=== PATIENT | female | born 1980 | race Caucasian/White ===

== ENCOUNTER → 2021-06-14 09:42 | Outpatient (CLI) | payer OTHER, SELFPAY ==
[2021-06-14 10:39] LABS: COVID19 -Nasal RAPID Negative (Negative)
== END ==
PROVIDERS: Visit Provider Nurse Practitioner
DX: Z20.822 Contact with and (suspected) exposure to COVID-19 (principal); R52 Pain, unspecified; R53.83 Other fatigue
CPT/HCPCS: 87635

== ENCOUNTER → 2021-07-11 09:17 | Outpatient (CLI) | payer OTHER, SELFPAY ==
[2021-07-11 11:30] LABS: COVID19 -Nasal RAPID Negative (Negative)
== END ==
PROVIDERS: Visit Provider Nurse Practitioner Family
DX: Z20.822 Contact with and (suspected) exposure to COVID-19 (principal)
CPT/HCPCS: 87635

== ENCOUNTER 2021-07-25 09:20 | Emergency (ER) | payer SELFPAY ==
[2021-07-25] VITALS (7 sets, daily range): BP systolic 123–142; BP diastolic 57–83; PULSE 73–92; RESP 14–23; TEMP 36.8; O2SAT 94–100; BMI 36.5
[2021-07-25 10:12] LABS: Add Manual Diff / Slide Review NO; Basophils Absolute Auto 100 /uL (0-100); Basophils Percent Auto 1.1 % (0-2); Eosinophils Absolute Auto 200 /uL (0-450); Eosinophils Percent Auto 2.2 % (2-4); Hematocrit 40.5 % (36-46); Hemoglobin 13.2 g/dL (12.0-16.0); Lymphocytes Absolute Auto 2800 /uL (1100-4500); Lymphocytes Percent Auto 34.7 % (25-40); Mean Corpuscular HGB Conc 32.7 % (30-36); Mean Corpuscular Volume 85.5 fL (80-100); Monocytes Absolute Auto 500 /uL (0-900); Monocytes Percent Auto 6.1 % (3-14); Neutrophils Absolute Auto 4600 /uL (1500-7000); Neutrophils Percent Auto 55.9 % (50-75); Platelet Count 281 X10^3/uL (150-400); Red Blood Cell Count 4.73 X10^6/uL (4.0-5.2); Red Cell Distribution Width 12.3 % (11.6-14.8); White Blood Cell Count 8.2 X10^3/uL (4.5-11.0)
--- NOTE | 2021-07-25 10:29 | ED_ITS ---
HPI - General Adult General Chief complaint: Abdominal Pain Stated complaint: Extreme pain in right side under rib cage Time Seen by Provider: 07/25/21 10:28 Source: patient Mode of arrival: Ambulatory Limitations: no limitations History of Present Illness HPI narrative: 41-year-old woman who presents with right upper quadrant pain. She notes that she has had intermittent problems with pain over the last number of years however over the last few weeks gotten significantly worse. In the last 48 hours she has had difficulty sleeping comes in today because the pain is not relenting at all. She notes that she has quite a few increased stressors for a bit of time was working 2 jobs, little time to focus on any type of healthy diet and has been eating quite a bit of ?vending machine lunches? and fast food. She does note that poor diet has made pain worse. She describes fatigue and chills some mild nausea but no specific emesis or diarrhea. No headaches, chest pain, dyspnea or palpitations. Related Data Home Medications Medication Instructions Recorded Confirmed multivitamin-ferrous 1 tab PO DAILY 06/14/21 07/11/21 fumarate-folic acid 18 mg-400 mcg tablet (Centrum) Allergies Allergy/AdvReac Type Severity Reaction Status Date / Time amoxicillin [From Augmentin] Allergy Unknown Verified 07/25/21 09:32 clavulanic acid Allergy Unknown Verified 07/25/21 09:32 [From Augmentin] sumatriptan [From Imitrex] Allergy Unknown Verified 07/25/21 09:32 eucalyptus Allergy Unknown Uncoded 07/11/21 09:30 Review of Systems Review of Systems Narrative: Remainder of complete review of systems is otherwise unremarkable except for that included in the HPI. Patient History Surgical History (Updated 07/25/21 @ 10:40 by Chey Simmons MD) H/O: hysterectomy Status post appendectomy Social History Smoking Status: Current every day smoker Smoking Status: Current every day smoker tobacco type: vaping alcohol intake frequency: holidays/special occasions only Substance Use Type: does not use Exam Narrative Exam Narrative: General: Healthy appearing, in mild distress but Able to give a complete and coherent history. Well-nourished well-developed HEENT: Moist mucous membranes, normal sclera with reactive pupils, Respiratory: Lungs are clear to auscultation, no wheezing no rales no rhonchi. Full and symmetrical air movement Cardiac: Regular rate and rhythm no murmurs no bruits Abdomen: Soft, mild tenderness in the right upper quadrant without rebound or guarding. Good bowel tones, no flank pain Skin: Warm and dry, no rashes Neurologic: Grossly neurologically intact with no obvious asymmetries or abnormalities Extremities: No trauma, well perfused Psych: Cooperative, appropriate insight and affect Initial Vital Signs Initial Vital Signs: Vital Signs Temperature 98.2 F 07/25/21 09:25 Pulse Rate 82 07/25/21 09:25 Respiratory Rate 14 07/25/21 09:25 Blood Pressure 128/83 07/25/21 09:25 Pulse Oximetry 100 07/25/21 09:25 Course Orders Ordered: ED Orders 07/25/21 09:32 EKG-12 Lead Stat 07/25/21 09:58 Complete Blood Count AUTO DIFF Stat Comprehensive Metabolic Panel Stat Lipase Stat 07/25/21 10:41 US abdomen limited Stat Discontinued Medications Ketorolac Tromethamine (Ketorolac 30 Mg/Ml Vial) 15 mg IV NOW ONE Stop: 07/25/21 11:03 Last Admin: 07/25/21 11:18 Dose: 15 mg Documented by: RONAK Ondansetron HCl (Ondansetron 4 Mg/2 Ml Inj) 4 mg IV NOW ONE Stop: 07/25/21 11:03 Last Admin: 07/25/21 11:18 Dose: 4 mg Documented by: RONAK Vital Signs Vital signs: Vital Signs - 8 hr 07/25/21 09:25 07/25/21 09:56 07/25/21 09:58 Temperature 98.2 F Pulse Rate 82 82 84 Respiratory Rate 14 19 Blood Pressure 128/83 142/66 H Pulse Oximetry 100 98 96 07/25/21 10:00 07/25/21 10:30 Temperature Pulse Rate 76 92 H Respiratory Rate 16 Blood Pressure 126/64 137/73 Pulse Oximetry 95 94 Medical Decision Making Lab Data Result diagrams: 07/25/21 09:58 07/25/21 09:58 Labs: Lab Results 07/25/21 07/25/21 Range/Units 09:58 09:58 WBC 8.2 (4.5-11.0) X10^3/uL RBC 4.73 (4.0-5.2) X10^6/uL Hgb 13.2 (12.0-16.0) g/dL Hct 40.5 (36-46) % MCV 85.5 (80-100) fL MCH 28.0 (26-34) PG MCHC 32.7 (30-36) % RDW 12.3 (11.6-14.8) % Plt Count 281 (150-400) X10^3/uL Neut % (Auto) 55.9 (50-75) % Lymph % (Auto) 34.7 (25-40) % [place] % (Auto) 6.1 (3-14) % Eos % (Auto) 2.2 (2-4) % Baso % (Auto) 1.1 (0-2) % Neut # (Auto) 4600 (8340-3820) /uL Lymph # (Auto) 2800 (8910-3377) /uL [place] # (Auto) 500 (0-900) /uL Eos # (Auto) 200 (0-450) /uL Baso # (Auto) 100 (0-100) /uL Sodium 139 (137-145) mmol/L Potassium 3.9 (3.4-5.1) mmol/L Chloride 103 (98-107) mmol/L Carbon Dioxide 28 (22-32) mmol/L BUN 10 (7-17) mg/dL Creatinine 0.52 (0.52-1.04) mg/dL Estimated GFR > 60.0 (>60) mL/min BUN/Creatinine Ratio 19.2 (6-22) Glucose 87 (70-100) mg/dL Calcium 9.0 (8.4-10.2) mg/dL Total Bilirubin 0.4 (0.2-1.3) mg/dL AST 32 (14-36) IU/L ALT 64 H (<35) IU/L Alkaline Phosphatase 82 (38-126) U/L Total Protein 7.3 (6.3-8.2) g/dL Albumin 4.3 (3.5-5.0) g/dL Globulin 3.0 (1.7-4.1) g/dL Albumin/Globulin Ratio 1.4 (1.0-2.8) Lipase 43 (23-300) U/L Urine Dip Bedside Urine Glucose Negative Bedside Urine Bilirubin - Negative Bedside Urine Ketone - Negative Urine Specific [place] 1.02 Bedside Urine Occult Blood - Negative Bedside Urine pH 7.0 Bedside Urine Protein - Negative Bedside Urine Urobilinogen - Negative Bedside Urine Nitrite - Negative Bedside Urine Leukocytes - Negative Esterase Point of care testing: Urine Dip Bedside Urine Glucose Negative Bedside Urine Bilirubin - Negative Bedside Urine Ketone - Negative Urine Specific [place] 1.02 Bedside Urine Occult Blood - Negative Bedside Urine pH 7.0 Bedside Urine Protein - Negative Bedside Urine Urobilinogen - Negative Bedside Urine Nitrite - Negative Bedside Urine Leukocytes - Negative Esterase Imaging Data US - abdomen: Radiologist's 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 Fatty liver. ECG Data Interpretation: Sinus rhythm at a rate of 75 Sinus arrhythmia is appreciated Normal intervals, normal axis No acute ischemic changes MDM Narrative Medical decision making narrative: 41-year-old woman presents with intermittent right upper quadrant pain worse for the last 24 hours. Ultrasound shows gallstones without acute cholecystitis. No evidence of significant obstruction or infection. She does have slightly elevated ALT consistent with her fatty liver disease. Discussion regarding diet and as low fat diet as she can tolerate and follow-up with [facility] for consultation for outpatient cholecystectomy. Will have her return to the ER should symptoms worsen or she develops any type of fever or jaundice. She is safe for home discharge Discharge Plan Departure Patient Disposition: Home Clinical Impression: Cholelithiasis Qualifiers: Cholelithiasis location: gallbladder Cholecystitis presence: without cholecystitis Biliary obstruction: without biliary obstruction Qualified Code(s): K80.20 - Calculus of gallbladder without cholecystitis without obstruction Instructions: DI for Gallstones Activity Restrictions/Additional Instructions: Thank you for coming in today You do have gallstones. Fortunately, they are not obstructing anything in your gallbladder is not acutely ill. You do not need to be in the hospital at this time. You do need to look at what you for eating. A diet with the least amount of fat you can tolerate will help with the symptoms you are currently having. You will need to follow-up with [facility] at [phone]. Please let them know you have been diagnosed with gallstones and need to talk to them about having your gallbladder removed. Using 400 mg of ibuprofen (2 [id number]-[id number] pills) and 1 Tylenol every 6 hours can be very helpful in controlling pain. If you have worsening signs or symptoms, pain can not be controlled, persistent vomiting, fevers or jaundice you need to return to the ER Prescriptions: No Action Centrum 18-400 mg-mcg tablet 1 tab PO DAILY RF: 0 Referrals: Miscellaneous,Doctor, MD [Primary Care Provider] -
[2021-07-25 10:41] LABS: Alanine Aminotransferase 64 IU/L (<35); Albumin 4.3 g/dL (3.5-5.0); Albumin Globulin Ratio 1.4 (1.0-2.8); Alkaline Phosphatase 82 U/L (38-126); Aspartate Aminotransferase 32 IU/L (14-36); BUN Creatinine Ratio 19.2 (6-22); Bilirubin Total 0.4 mg/dL (0.2-1.3); Blood Urea Nitrogen 10 mg/dL (7-17); Carbon Dioxide 28 mmol/L (22-32); Chloride 103 mmol/L (98-107); Estimated Glomerular Filt Rate > 60.0 mL/min (>60); Glucose 87 mg/dL (70-100); HEMOLYSIS < 15 (0-50); Lipase 43 U/L (23-300); Potassium 3.9 mmol/L (3.4-5.1); Sodium 139 mmol/L (137-145); Total Protein 7.3 g/dL (6.3-8.2)
--- NOTE | 2021-07-25 10:41 | DI.US.S_ITS ---
PROCEDURE: US ABDOMEN LIMITED INDICATIONS: RIGHT UPPER QUADRANT PAIN TECHNIQUE: Real-time focused scanning was performed of the abdomen, with image documentation. COMPARISON: None. FINDINGS: Overall scan quality is limited by bowel gas. The liver demonstrates normal size. The liver demonstrates generalized mildly increased echogenicity. This decreases ultrasound sensitivity for detection of hepatic masses. Numerous mobile, layering gallstones are seen. The largest individual stone measures up to 9 mm. The gallbladder wall is not thickened, measuring 3 mm or less. No specific pericholecystic fluid is seen. The sonographic Hoang sign is negative. There is no biliary dilatation, the common bile duct measures 5 mm. No significant pancreatic abnormality is seen on these images. IMPRESSION: Multiple mobile, layering gallstones are seen, yet without additional sonographic signs of cholecystitis. Negative for biliary dilatation. Please correlate with physical examination findings, patient presentation, and laboratory values. Dictated by: Jose Gillis M.D. on 07/25/2021 at 10:22 Approved by: Jose Gillis M.D. on 07/25/2021 at 10:23
[2021-07-25] MEDS: KETOROLAC 30 MG/ML VIAL 15 MG IV (11:18)
[2021-07-25] MEDS: ONDANSETRON 4 MG/2 ML INJ IV (11:18)
== END 2021-07-25 11:36 | disposition home or self-care (01) ==
PROVIDERS: Emergency Provider Emergency Medicine
DX: K80.20 Calculus of gallbladder without cholecystitis without obstruction (principal); R10.9 Unspecified abdominal pain
CPT/HCPCS: 36415; 76705; 80053; 81003; 83690; 85025; 93005; 93010; 96374; 96375; 99284; J1885; J2405

== ENCOUNTER → 2021-10-10 08:31 | Outpatient (CLI) | payer OTHER, SELFPAY ==
[2021-10-10 09:02] LABS: COVID19 -Nasal RAPID Negative (Negative)
== END ==
PROVIDERS: Visit Provider Nurse Practitioner Family
DX: Z20.822 Contact with and (suspected) exposure to COVID-19 (principal)
CPT/HCPCS: 87635

== ENCOUNTER → 2022-02-17 12:51 | Outpatient (CLI) | payer OTHER, SELFPAY ==
--- NOTE | 2022-02-17 12:53 | DI.MG.S_ITS ---
BILATERAL DIGITAL SCREENING MAMMOGRAM 3D/2D WITH CAD: 02/17/2022 CLINICAL: Baseline exam Routine screening. No prior exams were available for comparison. The tissue of both breasts is heterogeneously dense. This may lower the sensitivity of mammography. Current study was also evaluated with a Computer Aided Detection (CAD) system. No significant masses, calcifications, or other findings are seen in either breast. IMPRESSION: NEGATIVE There is no mammographic evidence of malignancy. A 1 year screening mammogram is recommended. This exam was interpreted at Station ID: [id number]. NOTE: For mammograms, a report in lay terms will be sent to the patient. Approximately 15% of breast malignancies will not be visualized mammographically. In the management of a palpable breast mass, a negative mammogram must not discourage biopsy of a clinically suspicious lesion. Electronically Signed By: Jamaal Strickland acr/lokesh:02/17/2022 13:53:44 letter sent: Normal Exam ACR BI-RADS Category 1: Negative 3341F
== END ==
PROVIDERS: Referring Provider Nurse Practitioner Family; Visit Provider Nurse Practitioner Family
DX: Z12.31 Encounter for screening mammogram for malignant neoplasm of breast (principal)
CPT/HCPCS: 77063; 77067

== ENCOUNTER → 2022-05-27 07:37 | Outpatient (CLI) | payer OTHER, SELFPAY ==
--- NOTE | 2022-05-27 | DI.RAD.S_ITS ---
PROCEDURE: XR LUMBAR SPINE 2-3V INDICATIONS: LUMBAGO WITH SCIATICA, RIGHT SIDE TECHNIQUE: 3 views of the lumbar spine were acquired. COMPARISON: None. FINDINGS: Bones: 5 [id number] vertebrae are present. There is straightening of normal lumbar lordosis. Very mild degenerative endplate changes are seen at L3-4 and L4-5 levels. No vertebral body compression fractures. No suspicious bony lesions. Soft tissues: Overlying bowel gas pattern is normal. No suspicious soft tissue calcifications. IMPRESSION: No compression fracture or spondylolisthesis in lumbar spine. Very mild degenerative endplate changes are noted at L3-4 and L4-5 levels. Dictated by: Landen Worley M.D. on 05/27/2022 at 8:44 Approved by: Landen Worley M.D. on 05/27/2022 at 8:45
== END ==
PROVIDERS: Referring Provider Naturopath; Visit Provider Naturopath
DX: M54.41 Lumbago with sciatica, right side (principal)
CPT/HCPCS: 72100

== ENCOUNTER → 2022-07-18 12:19 | Outpatient (CLI) | payer OTHER, SELFPAY | PROVIDERS: Referring Provider Internal Medicine; Visit Provider Internal Medicine | DX: Z23 Encounter for immunization (principal) | CPT/HCPCS: 90471; 90686 ==

== ENCOUNTER → 2023-02-23 07:34 | Outpatient (CLI) | payer OTHER, SELFPAY ==
--- NOTE | 2023-02-23 | DI.MG.S_ITS ---
BILATERAL DIGITAL SCREENING MAMMOGRAM 3D/2D WITH CAD: 02/23/2023 CLINICAL: Routine screening. Comparison is made to exam dated: 02/17/2022 mammogram - [facility]. Both breasts are heterogeneously dense, which may obscure small masses (category c / 51-75% glandular tissue). Current study was also evaluated with a Computer Aided Detection (CAD) system. There is a possible irregular asymmetry in the right breast middle depth superior region seen on the mediolateral oblique view only. No other significant masses, calcifications, or other findings are seen in either breast. IMPRESSION: INCOMPLETE: NEEDS ADDITIONAL IMAGING EVALUATION The possible irregular asymmetry in the right breast is indeterminate. Additional views with possible ultrasound are recommended. Based on the Tyrer Cuzick model (a risk assessment model) the patient's lifetime risk is 13.8% and her 10 year risk is 1.9%. According to the ACR, ACS, and NCCN guidelines, an annual breast MRI exam along with mammogram is recommended if the patient's lifetime risk is 20% or greater. This exam was interpreted at Station ID: [id number]. NOTE: For mammograms, a report in lay terms will be sent to the patient. Approximately 15% of breast malignancies will not be visualized mammographically. In the management of a palpable breast mass, a negative mammogram must not discourage biopsy of a clinically suspicious lesion. Electronically Signed By: Reggie omer/lokesh:02/23/2023 09:10:37 letter sent: Additional Imaging Needed ACR BI-RADS Category 0: Incomplete 3340F
== END ==
PROVIDERS: PCP Nurse Practitioner Family; Referring Provider Nurse Practitioner Family; Visit Provider Nurse Practitioner Family
DX: Z12.31 Encounter for screening mammogram for malignant neoplasm of breast (principal)
CPT/HCPCS: 77063; 77067

== ENCOUNTER → 2023-03-04 13:06 | Outpatient (CLI) | payer OTHER, SELFPAY ==
--- NOTE | 2023-03-04 | DI.US.S_ITS ---
LIMITED ULTRASOUND OF RIGHT BREAST: 03/04/2023 CLINICAL: Patient returns today to evaluate a focal asymmetry in the right breast. Comparison is made to exams dated: 03/04/2023 mammogram, 02/23/2023 mammogram, and 02/17/2022 mammogram - [facility]. Real-time ultrasound of the right breast 11-1 o'clock region was performed. Browne scale images of the real-time examination were reviewed. No significant abnormalities were seen sonographically in the right breast. IMPRESSION: NEGATIVE There is no sonographic evidence of malignancy. A 1 year screening mammogram is recommended. Exam findings were conveyed to the patient. This exam was interpreted at Station ID: [id number]. Electronically Signed By: Landry Emmanuel M.D. slc/:03/04/2023 14:08:23 letter sent: Normal Exam Ultrasound BI-RADS: 1 Negative
--- NOTE | 2023-03-04 | DI.MG.S_ITS ---
UNILATERAL RIGHT DIGITAL DIAGNOSTIC MAMMOGRAM 3D/2D WITH ADDITIONAL VIEWS: 03/04/2023 CLINICAL: Additional evaluation requested from prior study. Comparison is made to exams dated: 02/23/2023 mammogram and 02/17/2022 mammogram - [facility]. There are scattered areas of fibroglandular density in the right breast (category b / 25%-50% glandular tissue). There is a possible asymmetry in the right breast middle depth superior region seen on the mediolateral oblique view only. This is less prominent. No other significant masses or calcifications are seen in the breast. IMPRESSION: INCOMPLETE: NEEDS ADDITIONAL IMAGING EVALUATION The possible asymmetry in the right breast is indeterminate. A targeted ultrasound is recommended and will immediately follow. Based on the Tyrer Cuzick model (a risk assessment model) the patient's lifetime risk is 9.3% and her 10 year risk is 1.3%. According to the ACR, ACS, and NCCN guidelines, an annual breast MRI exam along with mammogram is recommended if the patient's lifetime risk is 20% or greater. This exam was interpreted at Station ID: [id number]. NOTE: For mammograms, a report in lay terms will be sent to the patient. Approximately 15% of breast malignancies will not be visualized mammographically. In the management of a palpable breast mass, a negative mammogram must not discourage biopsy of a clinically suspicious lesion. Electronically Signed By: Landry Emmanuel M.D. [facility]/:03/04/2023 13:58:47 ACR BI-RADS Category 0: Incomplete 3340F
== END ==
PROVIDERS: PCP Nurse Practitioner Family; Referring Provider Nurse Practitioner Family; Visit Provider Nurse Practitioner Family
DX: R92.8 Other abnormal and inconclusive findings on diagnostic imaging of breast (principal)
CPT/HCPCS: 76642; 77065; G0279

== ENCOUNTER → 2023-04-09 07:20 | Outpatient (CLI) | payer OTHER, SELFPAY ==
--- NOTE | 2023-04-09 | DI.RAD.S_ITS ---
PROCEDURE: XR CERVICAL SPINE 2V OR 3V INDICATIONS: Cervicalgia TECHNIQUE: 3 view(s) of the cervical spine were acquired. COMPARISON: None. FINDINGS: Bones: No fractures or dislocations to the C7 level. There is trace anterolisthesis of C3 on C4. The lateral masses of C1 appear intact on the odontoid view. No suspicious bony lesions. Degenerative disc disease is present, [id number]-[id number] at C5-C6 and C6-C7. Bilateral facet arthropathy is present, most pronounced at C2-C3 and C3-C4 on the left. There is mild atlantoaxial joint degeneration. Soft tissues: No prevertebral soft tissue swelling. IMPRESSION: 1. Degenerative disc and facet disease in cervical spine as described. Dictated by: Yohannes Gutierrez M.D. on 04/09/2023 at 7:55 Approved by: Yohannes Gutierrez M.D. on 04/09/2023 at 7:59
== END ==
PROVIDERS: PCP Nurse Practitioner Family; Referring Provider Nurse Practitioner Family; Visit Provider Nurse Practitioner Family
DX: M47.22 Other spondylosis with radiculopathy, cervical region (principal); M50.122 Cervical disc disorder at C5-C6 level with radiculopathy
CPT/HCPCS: 72040

== ENCOUNTER → 2023-04-25 14:43 | Outpatient (CLI) | payer OTHER, SELFPAY ==
--- NOTE | 2023-04-25 | DI.MRI.S_ITS ---
PROCEDURE: MR CERVICAL SPINE WO CON INDICATIONS: Cervicalgia TECHNIQUE: Noncontrast sagittal T1 spin echo and T2 fast spin echo, sagittal STIR, foraminal oblique sagittal T2 fast spin echo, and axial gradient echo or T2 fast spin echo through the cervical spine. COMPARISON: [facility], CR, XR CERVICAL SPINE 2V OR 3V, 04/09/2023, 7:22. FINDINGS: Image quality: This examination is limited by involuntary motion artifact. Alignment and Curvature: Reversal of the normal cervical lordosis is seen, with the apex at the C5-C6 level. No focal AP alignment abnormality is seen. Bone Marrow: Marrow demonstrates normal overall signal. Spinal Cord: Visualized spinal cord has normal size and signal. No cerebellar tonsillar herniation. Paraspinous Soft Tissues: No paravertebral masses. Prevertebral soft tissues are normal in thickness. C2-C3: The disc height and disk signal are relatively well-preserved. Mild disc osteophyte complex is seen, which is eccentric to the right. Mild to moderate facet hypertrophy can be seen. There is moderate right-sided and no left-sided neural foraminal narrowing. No significant central canal narrowing is seen. C3-C4: The disc height is well-preserved. Loss of disc signal is seen at this level. Moderate disc osteophyte complex is seen, which is eccentric to the right. Moderate facet joint hypertrophy is seen. Moderate bilateral neural foraminal narrowing is seen. Minimal central canal narrowing is seen. C4-C5: The disc height is well-preserved. Loss of disc signal is seen at this level. A mild degree of generalized disc osteophyte complex is seen. Mild to moderate facet hypertrophy can be seen. There is mild left-sided and no right-sided neural foraminal narrowing. No central canal narrowing can be seen. C5-C6: Moderate loss of disc height is seen. Loss of disc signal is seen. Moderate disc osteophyte complex is seen, which is eccentric to the right. Mild facet joint hypertrophy is seen. There is moderate right-sided and [id number] left-sided neural foraminal narrowing. Mild to moderate central canal narrowing can be seen. C6-C7: Mild loss of disc height is seen. Loss of disc signal is seen. A mild degree of generalized disc osteophyte complex is seen. Mild facet joint hypertrophy is seen. No significant neural foraminal or central canal narrowing can be seen. C7-T1: Normal appearance. IMPRESSION: Multiple levels of cervical spine degenerative change can be seen, which are overall worst at the C5-C6 level. Dictated by: Jose Gillis M.D. on 04/27/2023 at 14:01 Approved by: Jose Gillis M.D. on 04/27/2023 at 14:11
== END ==
PROVIDERS: PCP Nurse Practitioner Family; Referring Provider Nurse Practitioner Family; Visit Provider Nurse Practitioner Family
DX: M54.2 Cervicalgia (principal); M47.812 Spondylosis without myelopathy or radiculopathy, cervical region
CPT/HCPCS: 72141

== ENCOUNTER 2023-06-11 09:10 | Outpatient (CLI) | payer OTHER, SELFPAY ==
[2023-06-11] VITALS (9 sets, daily range): BP systolic 107–125; BP diastolic 59–82; PULSE 76–89; RESP 10–18; TEMP 36.4; O2SAT 94–97
--- NOTE | 2023-06-11 09:10 | DI.RAD.S_ITS ---
PROCEDURE: PAIN C/T INTERLAMINAR INJECT INDICATIONS: SPINAL STENOSIS COMPARISON: [facility], MR, MR CERVICAL SPINE WO CON, 04/25/2023, 15:23. FINDINGS: Fluoroscopic spot filming was performed to verify placement of a spinal needle at the C6-C7 level, as labeled on the films. Appropriate location of the needle tip was confirmed by injection of iodinated contrast. IMPRESSION: No significant intraprocedural abnormality. Dictated by: Jose Gillis M.D. on 06/11/2023 at 12:22 Approved by: Jose Gillis M.D. on 06/11/2023 at 12:23
[2023-06-11] MEDS: fentaNYL 100 MCG/2 ML INJ 50 MCG IV (10:18)
[2023-06-11] MEDS: MIDAZOLAM 2 MG/2 ML VIAL IV (10:18)
[2023-06-11] MEDS: DEXAMETHASONE 10 MG/ML VIAL 20 MG INJ (10:20)
[2023-06-11] MEDS: IOPAMIDOL 15 ML VIAL 3 ML INJ (10:20)
[2023-06-11] MEDS: BUPIVACAINE 0.25% (PF) VIAL 2 ML INJ (10:20)
--- NOTE | 2023-06-11 10:33 | PM.PROC.IR.1 ---
Date/Time/Diagnoses Date of procedure: 06/11/23 Time of procedure: 10:34 Pre-procedure diagnosis: 1. CERVICAL STENOSIS, 2. CERVICAL HNP WITH UPPER EXTREMITY RADICULAR FEATURES Post-procedure diagnosis: same Procedure Notes Procedure: 1. FLUORSCOPICALLY GUIDED CONTRAST CONTROLLED INTERLAMINAR EPIDURAL STEROID INJECTION - C6/7 TL JOSE MANUEL Indications: Rubia is referred by HEAD ANIMAL KEEPER Vlad for treatment of Cervical HNP with Upper Extremity Paresthesias. Physician: Narciso Cobb Total Fluoroscopy time (seconds): 32 Total sedation minutes: 12 Complications: none Procedure in detail & Post-procedure care: FINDINGS Cervical Stenosis due to disc deterioration and nerve root irritation and nerve root irritation DESCRIPTION OF PROCEDURE Fluoroscopically guided, contrast-controlled C6/7 translaminar epidural steroid injection with conscious sedation. Following review of allergy and review of potential side effects and complications, including, but not necessarily limited to, infection, allergic reaction, local tissue breakdown, temporary as well as permanent nerve injury, stroke, paralysis, and possible , the patient indicated that patient understood and agreed to proceed. An informed consent document was signed by the patient, witnessed by a nurse, and placed in the patient's chart. Additionally, other treatment options including modalities, medications, and physical therapy were reviewed with the patient. After review of previous anaesthesic history and IV conscious sedation the patient was deemed safe to proceed with today?s procedure with IV conscious sedation as ASA class II designation. Safety time-out was performed to confirm patient ID, procedure to be performed and site of procedure. IV sedation was accomplished with a combination of 2mg of Versed and 50mcg of Fentanyl administered by the RN after DO order, titrated to patient comfort during the course of the procedure while the patient remained responsive to all verbal commands. In the prone position, following sterile prep and drape of the cervical region, the C6/7 translaminar space was identified fluoroscopically. The skin was anesthetized via a 25-gauge 1.5-inch needle with 1% lidocaine solution. At this point, a 25-gauge, 2.5-inch short bevel spinal needle was atraumatically introduced and advanced under fluoroscopic guidance into epidural space at the C6/7 translaminar space. Depth was confirmed on lateral view. Radiological data, including multiple fluoroscopic views of the cervical spine, reveal a spinal needle at the C6/7 translaminar space. Lateral views then show placement of the needle in the epidural space. Subsequent views show contrast material flowing superiorly and inferiorly in the epidural space. DSA fluoroscopy with live contrast injection, once again, confirmed no vascular or intrathecal uptake. At this point, using loss of resistance technique with saline and air, the epidural space was entered. Following negative aspiration, injection of approximately 1.5 cc of Isovue-200 with live fluoroscopy in the AP view confirmed epidural flow in the epidural space without vascular or intrathecal uptake observed. Subsequently, a test dose of 1 cc of 1% lidocaine solution was injected and patient was observed for two minutes without signs or symptoms of complications, including abdominal pain, shortness of breath, bilateral upper or lower extremity weakness, nausea and vomiting, prior to steroid injection. At this point, 2cc or 20mg of dexamethasone was then injected without incident. The patient tolerated the procedure well without signs or symptoms of complications prior to being transferred to the recovery area for further monitoring, The patient was then transferred to the recovery area where they were observed for an appropriate period of time after the injection. The patient reported a VAS score of 6 prior to the procedure and a post-procedure VAS of 0. POST OP INSTRUCTIONS The patient was provided a Pain Log to continue to record their response to the target-specific procedure prior to follow-up visit with the referring provider. Additionally, specific post-injection care instructions and a contact number to our office were provided if concerns arise regarding possible complications associated with the procedure are suspected.
== END 2023-06-11 10:56 | disposition home or self-care (01) ==
LOC: RAD 09:10
PROVIDERS: Family Provider Nurse Practitioner Family; PCP Nurse Practitioner Family; Referring Provider Physical Medicine & Rehabilitation; Visit Provider Physical Medicine & Rehabilitation
DX: M48.02 Spinal stenosis, cervical region (principal); M50.123 Cervical disc disorder at C6-C7 level with radiculopathy
CPT/HCPCS: 62321; 99152; J1100; J2250; J3010; J3490

== ENCOUNTER 2023-07-10 16:45 | Outpatient (RCR) | payer OTHER, SELFPAY ==
--- NOTE | 2023-06-23 17:28 | PT.OIE ---
Current Diagnoses Other cervical disc displacement, unspecified cervical region (06/23/23) Radiculopathy, cervical region (06/23/23) Past Medical History (Last Updated 05/22/23 @ 16:44 by Narciso Cobb DO) Cervical radiculopathy at C7 Facet arthropathy, cervical HNP (herniated nucleus pulposus), cervical Past Surgical History (Last Reviewed 05/22/23 @ 16:44 by Narciso Cobb DO) H/O: hysterectomy Status post appendectomy Visit Care Team Role Provider Type OLINDA Cai Family Provider Non-Staff Primary Care Provider Specialty: Medical Address: [address] [place] [address], [id number] Email: Narciso Cobb DO Attending Provider Physician Referring Provider Specialty: Interventional Radiology Physiatry Pain Management Address: [address] [place], [address] Email: [email or web address] Physical Therapy Initial Evaluation PT-OP-A Visit Information Start: 06/23/23 16:26 Freq: Status: Active Protocol: Document 06/23/23 17:15 ED (Rec: 06/23/23 17:28 ED [id number]) Out-Patient Physical Therapy Visit Information Visit Information Visit Type Initial Evaluation Visit Start Time 16:35 Visit Stop Time 17:20 Total Visit Minutes 45 Evaluation Information Evaluation Date 06/23/23 PT-OP-B Current Condition Start: 06/23/23 16:26 Freq: Status: Active Protocol: Document 06/23/23 17:15 ED (Rec: 06/23/23 17:28 ED [id number]) Current Condition History of Current Condition Onset Date February Current Complaints L lateral neck pain History of Current Condition Pt reports to PT for neck pain . Pain is located along the base of her neck on the L side . Pt states that it is worse when sitting for prolonged periods of time and towards the end of each work week it gets to be really painful. Pt states she games a lot and has not been able to do that secondary to neck pain. She had a steroid injection at the end of May which helped for a little while but no longer seems to be effective. Pt also reports having L handed tingling that goes in all but her thumb. She loves distraction and often asks her to pull on her neck. PT-OP-C Subjective Start: 06/23/23 16:26 Freq: Status: Active Protocol: Document 06/23/23 17:15 ED (Rec: 06/23/23 17:28 ED [id number]) Patient Questionnaires Oswestry Low Back Index Oswestry Score 50 = 24.0 % Oswestry Impairment 20 to 39% Impaired (Score 20- 39) PT-OP-K Range of Motion Start: 06/23/23 16:26 Freq: Status: Active Protocol: Document 06/23/23 17:15 ED (Rec: 06/23/23 17:28 ED [id number]) Cervical Spine Range of Motion Cervical Spine Active Testing Position Sitting Flexion 60 Rotation Left 80 Rotation Right 80 PT-OP-L Special Tests Start: 06/23/23 16:26 Freq: Status: Active Protocol: Document 06/23/23 17:15 ED (Rec: 06/23/23 17:28 ED [id number]) Special Tests Cervical Spine Special Tests Traction Test Results + Foraminal Compression Test Results + Neural Special Tests- Upper Body Median Nerve Tension Test Results + PT-OP-Q Treatments Start: 06/23/23 16:26 Freq: Status: Active Protocol: Document 06/23/23 17:15 ED (Rec: 06/23/23 17:28 ED [id number]) Therapeutic Exercises Sitting Exercises scalene/UT stretch Reps/Minutes x30'' nerve glides Sitting Exercise Name median & ulnar nerve glides Side left Reps/Minutes x10 thoracic rotation Side bilateral Reps/Minutes x10 SNAGs Side bilateral Equipment Used pillowcase Reps/Minutes x10 PT-OP-T Assessment and Plan Start: 06/23/23 16:26 Freq: Status: Active Protocol: Document 06/23/23 17:15 ED (Rec: 06/23/23 17:28 ED [id number]) Physical Therapy Assessment Rehab Potential Rehabilitation Potential Good Evaluation Complexity Number of Personal Factors/Comorbidities 1-2 Number of Body Systems Impaired 1-2 Clinical Presentation at Evaluation Stable Impairments Impairments Pain,Posture,Soft Tissue Mobility Goals activity tolerance Impairment video games Detacher Goal (LTG) Pt will report being able to play video games again c/o neck pain. LTG Duration 5 weeks neck pain Impairment pain Short Term Goal (STG) Pt will report 15% improvement in neck pain during work hours. STG Duration 3 weeks Detacher Goal (LTG) Pt will ramwot70% improvement in neck pain during work hours . LTG Duration 6 weeks HEP Impairment HEP Short Term Goal (STG) Pt will report performing HEP regularly during work hours for 2 weeks. STG Duration 3 weeks Custodial Goal (LTG) Pt will report performing HEP regularly during work hours and at home. LTG Duration 6 weeks Assessment Summary Assessment Pt reported to PT c/ complaints of chronic neck pain; pain has been ongoing for 3-4 months. She had an injection into her neck that provided short term relief. After taking subjective history from patient, I believe her neck pain is likely stemming from static positioning and long periods of time of limited mobility likely increasing tissue irritation in neck. Pt provided with a routine she can perform at regular interval during work hours. This included: cervical SNAGs, median and ulnar nerve glides , seated thoracic rotation, and recommendation to consider purchasing an inflatable cervical collar that can create joint distraction. Physical Therapy Plan Frequency and Duration Frequency of Treatment 2x/Week Duration of treatment (weeks) 10 Plan of Care Start Date 06/23/23 Plan of Care End Date 09/21/23 Therapeutic Interventions Therapeutic Interventions Home Exercise Program,Joint Mobilizations,Manual Therapy, Neuromuscular Re-education, Patient/Caregiver Education, Self-Care/Home Management,Soft Tissue Mobilization,Taping, Therapeutic Activities, Therapeutic Exercises Modalities Cold Pack/Ice Massage,Electric Stimulation,Hot Packs, Ultrasound Next Visit Focus/Plan Next Note Type Treatment Note Next Visit Plan UBE, HEP (SNAGs, median/ulnar nerve glide, thoracic rotation ), open book, cat camel, UT stretch
--- NOTE | 2023-06-23 17:28 | PT.OPPOC ---
Physical, Occupational & Speech Therapy At [facility] Current Diagnoses Other cervical disc displacement, unspecified cervical region (06/23/23) Radiculopathy, cervical region (06/23/23) Visit Care Team Role Provider Type OLINDA Cai Family Provider Non-Staff Primary Care Provider Specialty: Medical Address: [address] [facility], [place], [address] Email: Narciso Cobb DO Attending Provider Physician Referring Provider Specialty: Interventional Radiology Physiatry Pain Management Address: [address] [place], [address] Email: [email or web address] Plan Of Care PT-OP-T Assessment and Plan Start: 06/23/23 16:26 Freq: Status: Active Protocol: Document 06/23/23 17:15 ED (Rec: 06/23/23 17:28 ED [id number]) Physical Therapy Assessment Rehab Potential Rehabilitation Potential Good Evaluation Complexity Number of Personal Factors/Comorbidities 1-2 Number of Body Systems Impaired 1-2 Clinical Presentation at Evaluation Stable Impairments Impairments Pain,Posture,Soft Tissue Mobility Goals activity tolerance Impairment video games Care Home Goal (LTG) Pt will report being able to play video games again c/o neck pain. LTG Duration 5 weeks neck pain Impairment pain Short Term Goal (STG) Pt will report 15% improvement in neck pain during work hours. STG Duration 3 weeks Environmental Analyst Goal (LTG) Pt will hlcpek16% improvement in neck pain during work hours . LTG Duration 6 weeks HEP Impairment HEP Short Term Goal (STG) Pt will report performing HEP regularly during work hours for 2 weeks. STG Duration 3 weeks Environmental Analyst Goal (LTG) Pt will report performing HEP regularly during work hours and at home. LTG Duration 6 weeks Assessment Summary Assessment Pt reported to PT c/ complaints of chronic neck pain; pain has been ongoing for 3-4 months. She had an injection into her neck that provided short term relief. After taking subjective history from patient, I believe her neck pain is likely stemming from static positioning and long periods of time of limited mobility likely increasing tissue irritation in neck. Pt provided with a routine she can perform at regular interval during work hours. This included: cervical SNAGs, median and ulnar nerve glides , seated thoracic rotation, and recommendation to consider purchasing an inflatable cervical collar that can create joint distraction. Physical Therapy Plan Frequency and Duration Frequency of Treatment 2x/Week Duration of treatment (weeks) 10 Plan of Care Start Date 06/23/23 Plan of Care End Date 09/21/23 Therapeutic Interventions Therapeutic Interventions Home Exercise Program,Joint Mobilizations,Manual Therapy, Neuromuscular Re-education, Patient/Caregiver Education, Self-Care/Home Management,Soft Tissue Mobilization,Taping, Therapeutic Activities, Therapeutic Exercises Modalities Cold Pack/Ice Massage,Electric Stimulation,Hot Packs, Ultrasound Next Visit Focus/Plan Next Note Type Treatment Note Next Visit Plan UBE, HEP (SNAGs, median/ulnar nerve glide, thoracic rotation ), open book, cat camel, UT stretch Plan of Care Dates Plan of Care Start Date 06/23/23 Plan of Care End Date 09/21/23 Electronically Signed by: Linwood Kwan, PT 06/23/23 8532 If you are in agreement with this Plan of Care, please return a signed and dated copy. I have reviewed this Plan of Care and certify that the skilled therapy services above are required to meet the patient?s needs. Physician Signature Date Printed Name and Credentials Clinical Instructor Signature Printed Name and Credentials
--- NOTE | 2023-06-30 17:17 | PT.OTN ---
Current Diagnoses Other cervical disc displacement, unspecified cervical region (06/30/23) Radiculopathy, cervical region (06/30/23) Physical Therapy Treatment Note PT-OP-A Visit Information Start: 06/23/23 16:26 Freq: Status: Active Protocol: Document 06/30/23 17:14 ED (Rec: 06/30/23 17:17 ED [id number]) Out-Patient Physical Therapy Visit Information Visit Information Visit Type Treatment Note Visit Start Time 14:45 Visit Stop Time 15:15 Total Visit Minutes 30 Visit Number 2 PT-OP-B Current Condition Start: 06/23/23 16:26 Freq: Status: Active Protocol: Document 06/23/23 17:15 ED (Rec: 06/23/23 17:28 ED [id number]) Current Condition History of Current Condition Onset Date February Current Complaints L lateral neck pain History of Current Condition Pt reports to PT for neck pain . Pain is located along the base of her neck on the L side . Pt states that it is worse when sitting for prolonged periods of time and towards the end of each work week it gets to be really painful. Pt states she games a lot and has not been able to do that secondary to neck pain. She had a steroid injection at the end of May which helped for a little while but no longer seems to be effective. Pt also reports having L handed tingling that goes in all but her thumb. She loves distraction and often asks her to pull on her neck. PT-OP-C Subjective Start: 06/23/23 16:26 Freq: Status: Active Protocol: Document 06/30/23 17:14 ED (Rec: 06/30/23 17:17 ED [id number]) OP-PT Subjective Patient Comments Patient Comments Pt states her neck is feeling better. She has been compliant c/ her HEP while at work. She did buy a self traction device that has been very relieving and has helped c/ the paresthesia in her L UE. PT-OP-K Range of Motion Start: 06/23/23 16:26 Freq: Status: Active Protocol: Document 06/23/23 17:15 ED (Rec: 06/23/23 17:28 ED [id number]) Cervical Spine Range of Motion Cervical Spine Active Testing Position Sitting Flexion 60 Rotation Left 80 Rotation Right 80 PT-OP-L Special Tests Start: 06/23/23 16:26 Freq: Status: Active Protocol: Document 06/23/23 17:15 ED (Rec: 06/23/23 17:28 ED [id number]) Special Tests Cervical Spine Special Tests Traction Test Results + Foraminal Compression Test Results + Neural Special Tests- Upper Body Median Nerve Tension Test Results + PT-OP-Q Treatments Start: 06/23/23 16:26 Freq: Status: Active Protocol: Document 06/30/23 17:14 ED (Rec: 06/30/23 17:17 ED [id number]) Cardio Equipment Upper Body Ergometer (UBE) Duration (Minutes) 5 Therapeutic Exercises Sidelying Exercises open book Reps/Minutes x10 ea [address] Sitting Exercises scalene/UT stretch Reps/Minutes x30'' nerve glides Sitting Exercise Name median & ulnar nerve glides Side left Reps/Minutes x10 thoracic rotation Side bilateral Reps/Minutes x10 SNAGs Side bilateral Equipment Used pillowcase Reps/Minutes x10 Other Exercises foam roller thoracic mobility Other Exercise Name FR mobility quadruped cat cow Other Exercise Name quadruped cat cow PT-OP-T Assessment and Plan Start: 06/23/23 16:26 Freq: Status: Active Protocol: Document 06/30/23 17:14 ED (Rec: 06/30/23 17:17 ED [id number]) Physical Therapy Assessment Goals activity tolerance Impairment video games Residential Goal (LTG) Pt will report being able to play video games again c/o neck pain. LTG Duration 5 weeks neck pain Impairment pain Short Term Goal (STG) Pt will report 15% improvement in neck pain during work hours. STG Duration 3 weeks Residential Goal (LTG) Pt will ogovgq57% improvement in neck pain during work hours . LTG Duration 6 weeks HEP Impairment HEP Short Term Goal (STG) Pt will report performing HEP regularly during work hours for 2 weeks. STG Duration 3 weeks Residential Goal (LTG) Pt will report performing HEP regularly during work hours and at home. LTG Duration 6 weeks Assessment Summary Assessment Pt has reported improvements in neck pain by performing her HEP during work day; will wait and see how she responds after a full 1-2 weeks of performing movements. Added open books to her HEP as she found them very relieving today when performing them. Physical Therapy Plan Frequency and Duration Frequency of Treatment 2x/Week Duration of treatment (weeks) 10 Plan of Care Start Date 06/23/23 Plan of Care End Date 09/21/23 Next Visit Focus/Plan Next Note Type Treatment Note Next Visit Plan UBE, HEP (SNAGs, median/ulnar nerve glide, thoracic rotation ), open book, cat camel, UT stretch, foam roller mobility, lateral raise isometric
--- NOTE | 2023-07-10 17:28 | PT.OTN ---
Current Diagnoses Other cervical disc displacement, unspecified cervical region (07/10/23) Radiculopathy, cervical region (07/10/23) Physical Therapy Treatment Note PT-OP-A Visit Information Start: 06/23/23 16:26 Freq: Status: Active Protocol: Document 07/10/23 17:24 ED (Rec: 07/10/23 17:28 ED [id number]) Out-Patient Physical Therapy Visit Information Visit Information Visit Type Treatment Note Visit Start Time 14:45 Visit Stop Time 15:25 Total Visit Minutes 40 Visit Number 3 PT-OP-B Current Condition Start: 06/23/23 16:26 Freq: Status: Active Protocol: Document 06/23/23 17:15 ED (Rec: 06/23/23 17:28 ED [id number]) Current Condition History of Current Condition Onset Date February Current Complaints L lateral neck pain History of Current Condition Pt reports to PT for neck pain . Pain is located along the base of her neck on the L side . Pt states that it is worse when sitting for prolonged periods of time and towards the end of each work week it gets to be really painful. Pt states she games a lot and has not been able to do that secondary to neck pain. She had a steroid injection at the end of May which helped for a little while but no longer seems to be effective. Pt also reports having L handed tingling that goes in all but her thumb. She loves distraction and often asks her to pull on her neck. PT-OP-C Subjective Start: 06/23/23 16:26 Freq: Status: Active Protocol: Document 07/10/23 17:24 ED (Rec: 07/10/23 17:28 ED [id number]) OP-PT Subjective Patient Comments Patient Comments Pt states that she has had a kink in the L side of her neck fairly regularly since last weekend. She feels like the paresthesia in her L arm has been better in the past 1-2 weeks though. PT-OP-K Range of Motion Start: 06/23/23 16:26 Freq: Status: Active Protocol: Document 06/23/23 17:15 ED (Rec: 06/23/23 17:28 ED [id number]) Cervical Spine Range of Motion Cervical Spine Active Testing Position Sitting Flexion 60 Rotation Left 80 Rotation Right 80 PT-OP-L Special Tests Start: 06/23/23 16:26 Freq: Status: Active Protocol: Document 06/23/23 17:15 ED (Rec: 06/23/23 17:28 ED [id number]) Special Tests Cervical Spine Special Tests Traction Test Results + Foraminal Compression Test Results + Neural Special Tests- Upper Body Median Nerve Tension Test Results + PT-OP-Q Treatments Start: 06/23/23 16:26 Freq: Status: Active Protocol: Document 07/10/23 17:24 ED (Rec: 07/10/23 17:28 ED [id number]) Cardio Equipment Upper Body Ergometer (UBE) Duration (Minutes) 5 Therapeutic Exercises Sidelying Exercises open book Reps/Minutes x10 ea [address] Sitting Exercises cervical extension Sitting Exercise Name isometric against ball Reps/Minutes 3x3x15'' Standing Exercises shoulder shrug Standing Exercise Name dowel shoulder shrug Resistance 10# Reps/Minutes 3x10 Other Exercises foam roller thoracic mobility Other Exercise Name FR mobility PT-OP-T Assessment and Plan Start: 06/23/23 16:26 Freq: Status: Active Protocol: Document 07/10/23 17:24 ED (Rec: 07/10/23 17:28 ED [id number]) Physical Therapy Assessment Goals activity tolerance Impairment video games Long-Term Goal (LTG) Pt will report being able to play video games again c/o neck pain. LTG Duration 5 weeks neck pain Impairment pain Short Term Goal (STG) Pt will report 15% improvement in neck pain during work hours. STG Duration 3 weeks Motor Block Mechanic Goal (LTG) Pt will uhalme18% improvement in neck pain during work hours . LTG Duration 6 weeks HEP Impairment HEP Short Term Goal (STG) Pt will report performing HEP regularly during work hours for 2 weeks. STG Duration 3 weeks Motor Block Mechanic Goal (LTG) Pt will report performing HEP regularly during work hours and at home. LTG Duration 6 weeks Assessment Summary Assessment Worked on cervicothoracic mobility followed by gentle strengthening of neck via cervical extension isometrics and shoulder shrugs. Pt had some intermittent pain during exercises but otherwise able to do most of them c/o discomfort. Physical Therapy Plan Frequency and Duration Frequency of Treatment 2x/Week Duration of treatment (weeks) 10 Plan of Care Start Date 06/23/23 Plan of Care End Date 09/21/23 Therapeutic Interventions Therapeutic Interventions Home Exercise Program,Joint Mobilizations,Manual Therapy, Neuromuscular Re-education, Patient/Caregiver Education, Self-Care/Home Management,Soft Tissue Mobilization,Taping, Therapeutic Activities, Therapeutic Exercises Modalities Cold Pack/Ice Massage,Electric Stimulation,Hot Packs, Ultrasound Next Visit Focus/Plan Next Note Type Treatment Note Next Visit Plan UBE, HEP (SNAGs, median/ulnar nerve glide, thoracic rotation ), open book, cat camel, UT stretch, foam roller mobility, lateral raise isometric
--- NOTE | 2023-08-18 09:50 | PT.OPDS ---
Current Diagnoses Other cervical disc displacement, unspecified cervical region (07/10/23) Radiculopathy, cervical region (07/10/23) Visit Care Team Role Provider Type OLINDA Cai Family Provider Non-Staff Primary Care Provider Specialty: Medical Address: [address] , [place], [address] Email: Narciso Cobb DO Attending Provider Physician Referring Provider Specialty: Interventional Radiology Physiatry Pain Management Address: [address] [place], [address] Email: [email or web address] Visit Number Visit Number 3 Discharge Summary PT-OP-B Current Condition Start: 06/23/23 16:26 Freq: Status: Active Protocol: Document 06/23/23 17:15 ED (Rec: 06/23/23 17:28 ED [id number]) Current Condition History of Current Condition Onset Date February Current Complaints L lateral neck pain History of Current Condition Pt reports to PT for neck pain . Pain is located along the base of her neck on the L side . Pt states that it is worse when sitting for prolonged periods of time and towards the end of each work week it gets to be really painful. Pt states she games a lot and has not been able to do that secondary to neck pain. She had a steroid injection at the end of May which helped for a little while but no longer seems to be effective. Pt also reports having L handed tingling that goes in all but her thumb. She loves distraction and often asks her to pull on her neck. PT-OP-C Subjective Start: 06/23/23 16:26 Freq: Status: Active Protocol: Document 07/10/23 17:24 ED (Rec: 07/10/23 17:28 ED [id number]) OP-PT Subjective Patient Comments Patient Comments Pt states that she has had a kink in the L side of her neck fairly regularly since last weekend. She feels like the paresthesia in her L arm has been better in the past 1-2 weeks though. PT-OP-K Range of Motion Start: 06/23/23 16:26 Freq: Status: Active Protocol: Document 06/23/23 17:15 ED (Rec: 06/23/23 17:28 ED [id number]) Cervical Spine Range of Motion Cervical Spine Active Testing Position Sitting Flexion 60 Rotation Left 80 Rotation Right 80 PT-OP-L Special Tests Start: 06/23/23 16:26 Freq: Status: Active Protocol: Document 06/23/23 17:15 ED (Rec: 06/23/23 17:28 ED [id number]) Special Tests Cervical Spine Special Tests Traction Test Results + Foraminal Compression Test Results + Neural Special Tests- Upper Body Median Nerve Tension Test Results + PT-OP-T Assessment and Plan Start: 06/23/23 16:26 Freq: Status: Active Protocol: Document 08/18/23 09:48 ED (Rec: 08/18/23 09:50 ED [id number]) Physical Therapy Assessment Goals activity tolerance Impairment video games Conservation Assistant Goal (LTG) Pt will report being able to play video games again c/o neck pain. LTG Duration 5 weeks neck pain Impairment pain Short Term Goal (STG) Pt will report 15% improvement in neck pain during work hours. STG Duration 3 weeks [facility] Goal (LTG) Pt will yaexxn26% improvement in neck pain during work hours . LTG Duration 6 weeks HEP Impairment HEP Short Term Goal (STG) Pt will report performing HEP regularly during work hours for 2 weeks. STG Duration 3 weeks [facility] Goal (LTG) Pt will report performing HEP regularly during work hours and at home. LTG Duration 6 weeks Assessment Summary Assessment Pt will be DC'd from physical therapy services at this time. Pt was last in for PT on 07/10. PT had recommended patient take frequent breaks throughout her day to move her body, specifically her cervicothoracic region in order to reduce time spent in seated posture at her desk. Physical Therapy Plan Discharge Physical Therapy Discharge Reasons No Longer Attending PT
== END 2023-08-20 14:43 | disposition home or self-care (01) ==
LOC: PHYS 16:45
PROVIDERS: Family Provider Nurse Practitioner Family; PCP Nurse Practitioner Family; Referring Provider Physical Medicine & Rehabilitation; Visit Provider Physical Medicine & Rehabilitation
DX: M54.12 Radiculopathy, cervical region (principal); M50.20 Other cervical disc displacement, unspecified cervical region
CPT/HCPCS: 97110; 97161

== ENCOUNTER → 2023-07-28 06:57 | Outpatient (CLI) | payer OTHER, SELFPAY ==
[2023-07-28 08:24] LABS: Hematocrit 40.4 % (36-46); Hemoglobin 13.6 g/dL (12.0-16.0); Mean Corpuscular HGB Conc 33.6 % (30-36); Mean Corpuscular Hemoglobin 28.3 PG (26-34); Mean Corpuscular Volume 84.2 fL (80-100); Platelet Count 265 X10^3/uL (150-400); Red Cell Distribution Width 12.8 % (11.6-14.8); White Blood Cell Count 7.7 X10^3/uL (4.5-11.0)
[2023-07-28 08:45] LABS: Alanine Aminotransferase 37 IU/L (<35); Albumin 4.4 g/dL (3.5-5.0); Albumin Globulin Ratio 1.5 (1.0-2.8); Alkaline Phosphatase 63 U/L (38-126); Aspartate Aminotransferase 31 IU/L (14-36); BUN Creatinine Ratio 11.5 (6-22); Bilirubin Total 0.3 mg/dL (0.2-1.3); Blood Urea Nitrogen 9 mg/dL (7-17); Calcium 9.5 mg/dL (8.4-10.2); Carbon Dioxide 28 mmol/L (22-32); Chloride 105 mmol/L (98-107); Cholesterol 225 mg/dL (140-199); Estimated Glomerular Filt Rate > 60 mL/min (>60); Glucose 89 mg/dL (70-100); HDL Cholesterol 50 mg/dL (40-60); HEMOLYSIS < 15 (0-50); LDL Cholesterol Calculated 137 mg/dL (<100); Potassium 4.1 mmol/L (3.4-5.1); Sodium 141 mmol/L (137-145); Total Protein 7.4 g/dL (6.3-8.2); Triglycerides 189 mg/dL (35-150)
[2023-07-28 09:02] LABS: Follicle Stimulating Hormone 24.5 mIU/mL; Progesterone, Total 0.55 ng/mL
[2023-07-28 09:19] LABS: Testosterone 23.1 ng/dL (5.71-77.0)
[2023-07-28 09:20] LABS: Thyroid Stimulating Hormone 0.979 uIU/mL (0.47-4.68)
== END ==
PROVIDERS: Family Provider Nurse Practitioner Family; PCP Nurse Practitioner Family; Referring Provider Nurse Practitioner Family; Visit Provider Nurse Practitioner Family
DX: Z79.890 Hormone replacement therapy (principal); E66.9 Obesity, unspecified; Z13.220 Encounter for screening for lipoid disorders; Z13.1 Encounter for screening for diabetes mellitus
CPT/HCPCS: 36415; 80053; 80061; 82670; 83001; 84144; 84403; 84443; 85027

== ENCOUNTER → 2023-09-11 14:10 | Outpatient (CLI) | payer OTHER, SELFPAY | PROVIDERS: Family Provider Nurse Practitioner Family; PCP Nurse Practitioner Family; Referring Provider Family Medicine; Visit Provider Family Medicine | DX: Z23 Encounter for immunization (principal) | CPT/HCPCS: 90471; 90686 ==